=== PATIENT | female | born 1990 | race Two or more races ===

== ENCOUNTER 2017-07-07 15:13 | Emergency (ER) | payer SELFPAY ==
[2017-07-07 15:24] VITALS: BP 111/70; BMI 25.6
[2017-07-07 16:01] LABS: BILIRUBIN,URINE NEGATIVE (NEGATIVE); BLOOD/HEMOGLOBIN,URINE 2+ (NEGATIVE); GLUCOSE, URINE NEGATIVE (NEGATIVE); KETONES,URINE NEGATIVE (NEGATIVE); LEUKOCYTE ESTERASE ,URINE 1+ (NEGATIVE); NITRITES,URINE NEGATIVE (NEGATIVE); PROTEIN,URINE NEGATIVE (NEGATIVE); UROBILINOGEN,URINE NORMAL (NORMAL)
[2017-07-07 16:14] LABS: APPEARANCE,URINE CLEAR (CLEAR); COLOR,URINE YELLOW (YELLOW)
[2017-07-07 16:15] LABS: BACTERIA,URINE TRACE /HPF (NEGATIVE); RBC,URINE 0-2 /HPF (NONE SEEN); SQUAMOUS EPITHELIAL CELL,UR NEGATIVE /HPF (NEGATIVE)
--- NOTE | 2017-07-07 16:31 | ED.ABDFE ---
HPI - Time seen Time seen: 16:30 - PCP Primary Care Physician: NONE - Complaint Chief Complaint Doctors Comments: Patient presents with complaint of being dizzy for a few days, stomach pain that sharp across the abdomen. Denies nausea or vomiting. Chief Complaint:: LOWER ABD PAIN COMES AND GOES FOR LAST 2 WEEKS. HAS HAD IRREGULAR MENSES. LMP LAST WEEK OF MAY. NO URINARY PROBLEMS. - Source History Provided: Patient, Other - Mode of arrival Mode of Arrival: Ambulatory - Timing Onset of Chief Complaint: 06/23/17 PMH - PMH Past Medical History: No Past Surgical History: No - Family History History of Family Medical Conditions: No - Social History Alcohol Use: None Do you use any recreational Drugs:: No Lives With: Friend Lives Where: Home - infectious screening In the last 2 months have you had wt loss of >10#?: NO Have you had fever, night sweats or hemotysis?: No Have you traveled outside the country in the last 6 months?: No Isolation: Standard ROS - Review of Systems Eyes: No Symptoms Reported ENTM: No Symptoms Reported Respiratoy: No Symptoms Reported Cardiovascular: No Symptoms Reported Gastrointestinal/Abdominal: No Symptoms Reported Genitourinary: No Symptoms Reported Neurological: No Symptoms Reported Musculoskeletal: No Symptoms Reported Integumentary: No Symptoms Reported Hematologic/Lymphatic: No Symptoms Reported Endocrine: No Symptoms Reported Psychiatric: No Symptoms Reported All Other Systems: Reviewed and Negative PE - Vital Signs Vitals: Temperature 98.9 F Pulse Rate 77 Respiratory Rate 18 Blood Pressure 111/70 O2 Sat by Pulse Oximetry 99 - General Limitations: No Limitations General Appearance: Alert, In No Apparent Distress - Head Head Exam: Normal Inspection, Atraumatic - Eyes Eye exam: Normal Appearance, PERRL, EOMI - ENT ENT Exam: Normal Exam - Neck Neck Exam: Normal Inspection, Full ROM - Chest Chest Inspection: Normal Inspection - Respiratory Respiratory Exam: Normal Lung Sounds Bilat Respiratory Exam: Bilateral Clear to Auscultation - Cardiovascular Cardiovascular Exam: Regular Rate, Normal Rhythm - Abdominal Exam Abdominal Exam: Normal Inspection, Normal Bowel Sounds Abdominal Tenderness: Suprapubic - Rectal Rectal Exam: Deferred - Back Back Exam: Normal Inspection, Full ROM - Extremeties Extremities Exam: Normal Inspection, Full ROM - External Exam: Female: Deferred : Speculum Exam (Female): Deferred : Bimanual Exam (female): Deferred - Neurologic Neurological Exam: Alert, Oriented X3, CN II-XII Intact - Psychiatric Psychiatric Exam: Normal Affect, Normal Mood - Skin Skin Exam: Warm, Dry, Intact Course - Reevaluation 1st: Unchanged - Education/Counseling Educated On: Treatment, Diagnosis, Prognosis, Needs for Follow Up ROR - Labs Reviewed Result Diagrams: 07/07/17 16:04 07/07/17 16:04 Laboratory: WBC 8.6 X10^3/uL (3.6-10.0) 07/07/17 16:04 RBC 3.94 X10^6/uL (3.5-5.4) 07/07/17 16:04 Hgb 12.4 g/dL (12.0-16.0) 07/07/17 16:04 Hct 35.5 % (36.0-47.0) L 07/07/17 16:04 MCV 90.0 fL (80.0-100.0) 07/07/17 16:04 MCH 31.4 pg (27.0-34.0) 07/07/17 16:04 MCHC 34.9 g/dL (33.0-35.0) 07/07/17 16:04 RDW 13.0 % (11.6-16.5) 07/07/17 16:04 Plt Count 230 X10^3/uL (150.0-450.0) 07/07/17 16:04 MPV 10.0 fL (7.4-11.0) 07/07/17 16:04 Neut % (Auto) 63.8 % (42.0-75.0) 07/07/17 16:04 Lymph % (Auto) 28.5 % (21.0-51.0) 07/07/17 16:04 Teller % (Auto) 5.5 % (0.0-13.0) 07/07/17 16:04 Eos % (Auto) 1.8 % (0.9-2.9) 07/07/17 16:04 Baso % (Auto) 0.4 % (0.2-1.0) 07/07/17 16:04 Neut # (Auto) 5.5 x10^3/uL (2.2-4.8) H 07/07/17 16:04 Lymph # (Auto) 2.4 X10^3/uL (1.3-2.9) 07/07/17 16:04 Teller # (Auto) 0.5 x10^3/uL (0.3-0.8) 07/07/17 16:04 Eos # (Auto) 0.2 x10^3/uL (0.0-0.2) 07/07/17 16:04 Baso # (Auto) 0.0 X10^3/uL (0.0-0.1) 07/07/17 16:04 Absolute Nucleated RBC 0.0 /100WBC 07/07/17 16:04 Sodium 139 mmol/L (136-145) 07/07/17 16:04 Corrected Sodium 140 mmol/L (136-145) 07/07/17 16:04 Potassium 3.6 mmol/L (3.5-5.1) 07/07/17 16:04 Chloride 105 mmol/L (98-107) 07/07/17 16:04 Carbon Dioxide 24.6 mmol/L (21-32) 07/07/17 16:04 BUN 9 mg/dL (7-18) 07/07/17 16:04 Creatinine 0.80 mg/dL (0.55-1.02) 07/07/17 16:04 Est GFR (MDRD) Af Amer > 60 (>60) 07/07/17 16:04 Est GFR (MDRD) Non-Af > 60 (>60) 07/07/17 16:04 Glucose 123 mg/dL (65-99) H 07/07/17 16:04 Calcium 7.8 mg/dL (8.5-10.1) L 07/07/17 16:04 Corrected Calcium TNP 07/07/17 16:04 Total Bilirubin 0.50 mg/dL (0.2-1.0) 07/07/17 16:04 AST 22 Units/L (15-37) 07/07/17 16:04 ALT 26 Units/L (12-78) 07/07/17 16:04 Alkaline Phosphatase 70 Units/L (46-116) 07/07/17 16:04 C-Reactive Protein 0.60 mg/L (0-3.0) 07/07/17 16:04 Total Protein 7.4 g/dL (6.4-8.2) 07/07/17 16:04 Albumin 3.8 g/dL (3.4-5.0) 07/07/17 16:04 Globulin 3.6 g/dL (2.5-4.5) 07/07/17 16:04 Albumin/Globulin Ratio 1.1 Ratio (1.1-2.1) 07/07/17 16:04 HCG, Qual Negative <10 mIU/mL 07/07/17 16:04 Specimen Type Clean catch urine 07/07/17 15:54 Urine Color Yellow (YELLOW) 07/07/17 15:54 Urine Appearance Clear (CLEAR) 07/07/17 15:54 Urine pH 5.0 (5.0 - 8.0) 07/07/17 15:54 Ur Specific [place] 1.020 (1.000-1.030) 07/07/17 15:54 Urine Protein Negative (NEGATIVE) 07/07/17 15:54 Urine Glucose (UA) Negative (NEGATIVE) 07/07/17 15:54 Urine Ketones Negative (NEGATIVE) 07/07/17 15:54 Urine Occult Blood 2+ (NEGATIVE) 07/07/17 15:54 Urine Nitrite Negative (NEGATIVE) 07/07/17 15:54 Urine Bilirubin Negative (NEGATIVE) 07/07/17 15:54 Urine Urobilinogen Normal (NORMAL) 07/07/17 15:54 Ur Leukocyte Esterase 1+ (NEGATIVE) 07/07/17 15:54 Urine RBC 0-2 /HPF (NONE SEEN) 07/07/17 15:54 Urine WBC 0-2 /HPF (NONE SEEN) 07/07/17 15:54 Ur Squamous Epith Cells Negative /HPF (NEGATIVE) 07/07/17 15:54 Urine Bacteria Trace /HPF (NEGATIVE) 07/07/17 15:54 Ur Culture Indicated? No/not indicated 07/07/17 15:54 - XRAY XRAY Interpreted by: Radiologist (Acute Abdom: The heart size is normal and the lungs are clear. The bowel gas pattern is nonspecific. No markedly dilated bowel loops are identified. There is moderate diffuse colonic stool burden. No evidence for gross free airl. Impression: No acute abdomen or chest process. Constipation) - Diagnosis Discharge Problem: Constipation Qualifiers: Constipation type: slow transit constipation Qualified Code(s): K59.01 - Slow transit constipation - Discharge Plan Condition: Stable - Follow ups/Referrals Follow ups/Referrals: NFD,None [Primary Care Provider] - 3 days - Instructions
[2017-07-07 16:33] LABS: SERUM PREGNANCY TEST, QUAL NEGATIVE <10 mIU/mL
[2017-07-07 17:03] LABS: BASOPHILS % (AUTO) 0.4 % (0.2-1.0); EOSINOPHILS # (AUTO) 0.2 x10^3/uL (0.0-0.2); EOSINOPHILS % (AUTO) 1.8 % (0.9-2.9); HEMATOCRIT 35.5 % (36.0-47.0); HEMOGLOBIN 12.4 g/dL (12.0-16.0); LYMPHOCYTES # (AUTO) 2.4 X10^3/uL (1.3-2.9); LYMPHOCYTES % (AUTO) 28.5 % (21.0-51.0); MEAN CORPUSCULAR HEMOGLOBIN 31.4 pg (27.0-34.0); MEAN CORPUSCULAR HGB CONC 34.9 g/dL (33.0-35.0); MONOCYTES # (AUTO) 0.5 x10^3/uL (0.3-0.8); MONOCYTES % (AUTO) 5.5 % (0.0-13.0); NEUTROPHILS # (AUTO) 5.5 x10^3/uL (2.2-4.8); NEUTROPHILS % (AUTO) 63.8 % (42.0-75.0); PLATELET COUNT 230 X10^3/uL (150.0-450.0); RED BLOOD COUNT 3.94 X10^6/uL (3.5-5.4); WHITE BLOOD COUNT 8.6 X10^3/uL (3.6-10.0)
[2017-07-07 17:07] LABS: ALANINE AMINOTRANSFERASE 26 Units/L (12-78); ALBUMIN 3.8 g/dL (3.4-5.0); ALKALINE PHOSPHATASE 70 Units/L (46-116); ASPARTATE AMINO TRANSFERASE 22 Units/L (15-37); BLOOD UREA NITROGEN 9 mg/dL (7-18); CALCIUM 7.8 mg/dL (8.5-10.1); CARBON DIOXIDE 24.6 mmol/L (21-32); CHLORIDE 105 mmol/L (98-107); COR NA(FOR HYPERGLY) 140 mmol/L (136-145); SODIUM 139 mmol/L (136-145); TOTAL PROTEIN 7.4 g/dL (6.4-8.2); eGFR BLACK RACES > 60 (>60); eGFR NON BLACK RACES > 60 (>60)
--- NOTE | 2017-07-07 17:12 | RAD ---
Acute abdominal series with PA chest Indication: Abdominal pain Comparison: None Findings: The heart size is normal and the lungs are clear. The bowel gas pattern is nonspecific. No markedly dilated bowel loops are identified. There is moderate diffuse colonic stool burden. No evide nce for gross free air. IUD is noted within the central pelvis. Impression: No acute abdominal or chest process. Constipation. Reported By:
[2017-07-07] MEDS ORDERED: CITROMA PO ONE (17:46)
[2017-07-07] MEDS ORDERED: CITROMA ONE (17:49)
== END 2017-07-07 17:52 | disposition home or self-care (01) ==
LOC: ER 15:30 → EDBD 15:30 → ER 17:52
DX: K59.01 Slow transit constipation (principal)
CPT/HCPCS: 36415; 74022; 80053; 81001; 81003; 84703; 85025; 86140; 99282; 99283